=== PATIENT | female | born 2005 | race Caucasian/White ===

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

== ENCOUNTER → 2023-06-12 | Outpatient (CLI) | payer OTHER ==
--- NOTE | 2023-06-12 13:57 | XR ---
EXAMINATION TYPE: XR scoliosis survey DATE OF EXAM: 06/12/2023 12:50 PM COMPARISON: 03/30/2018. CLINICAL INDICATION:Female, 17 years old with history of M41.24 OTHER IDIOPATHIC SCOLIOSIS, THORACIC REGION; TECHNIQUE: Frontal and lateral views of the spine while standing. FINDINGS: There are 12 rib-bearing thoracic vertebrae and 5 [id number] lumbar vertebrae. Levoscoliosis apex T11 left iliac crest is approximately 6 mm higher than the right. There is normal sagittal balance. Rightward truncal shift of 11 mm. Buchanan angle 21, previously 28. No vertebral anomalies. The vertebral body heights, intervertebral disc spaces, and vertebral column alignment are well maintained. No evidence of spondylolysis or spondylolisthesis. The lungs are clear. The aortic knob, cardiac apex, and gastric bubble are left-sided. The bowel gas pattern is unremarkable. IMPRESSION: Improved levoscoliosis now with a Buchanan angle of 21, previously 28 when measuring similarly.
== END | disposition home or self-care (01) ==
LOC: RADXRMAIN 11:44
PROVIDERS: ATTEND Nurse Practitioner Primary Care
DX: M41.24 Other idiopathic scoliosis, thoracic region (principal)
CPT/HCPCS: 72082